=== PATIENT | male | born 1955 | race Asian ===

== ENCOUNTER 2018-05-23 17:23 | Inpatient (IN) | payer OTHER ==
[~2018-05-23] VITALS: Ht 170.2 cm; Wt 52.6 kg
[2018-05-23 18:17] LABS: BASOPHILS ABSOLUTE AUTO 0.05 K/mm3 (0.00-0.23); BASOPHILS PERCENT AUTO 1 % (0-2); EOSINOPHILS ABSOLUTE AUTO 0.17 K/mm3 (0.00-0.68); EOSINOPHILS PERCENT AUTO 2 % (0-6); Hematocrit 44.9 % (37.0-53.0); Hemoglobin 15.2 g/dL (13.5-17.5); IMMATURE GRAN ABSOLUTE AUTO 0.01 K/mm3 (0.00-0.10); IMMATURE GRAN PERCENT AUTO 0 % (0-1); LYMPHOCYTES ABSOLUTE AUTO 1.63 K/mm3 (0.84-5.20); LYMPHOCYTES PERCENT AUTO 22 % (21-46); MONOCYTES ABSOLUTE AUTO 0.45 K/mm3 (0.16-1.47); MONOCYTES PERCENT AUTO 6 % (4-13); Mean Corpuscular HGB 30.4 pg (26.0-34.0); Mean Corpuscular HGB Conc 33.9 g/dL (31.5-36.5); Mean Corpuscular Volume 90 fL (80-100); Mean Platelet Volume 10.4 fL (9.1-12.4); NEUTROPHILS ABSOLUTE AUTO 5.12 K/mm3 (1.96-9.15); NEUTROPHILS PERCENT AUTO 69 % (41-73); Platelet Count 207 K/mm3 (150-400); RDW Coefficient Variation 13.2 % (11.7-14.2); RDW Standard Deviation 43.2 fL (35.1-46.3); White Blood Cell Count 7.43 K/mm3 (4.00-11.30)
[2018-05-23 18:37] LABS: International Normalized Ratio 1.05; Prothrombin Time Results 11.1 Sec (9.7-11.5)
[2018-05-23 18:54] LABS: Alanine Aminotransfer (ALT/SGP 28 U/L (12-78); Albumin, Blood 3.5 g/dL (3.4-5.0); Albumin/Globulin Ratio 1.1 (0.8-1.8); Alk Phos 87 U/L (50-136); Anion Gap 8 mmol/L (6-16); Aspartate Aminotrans (AST/SGOT 16 U/L (12-37); Bilirubin, Total 0.9 mg/dL (0.1-1.0); Blood Urea Nitrogen 13 mg/dL (8-24); Bun/Creatinine Ratio 16.3 (12.0-20.0); CO2, Blood 27 mmol/L (21-32); Calcium, Blood 8.1 mg/dL (8.5-10.1); Chloride, Blood 101 mmol/L (98-108); Globulin, Blood 3.3 g/dL (2.2-4.0); Glomerular Filtration Rate >60 (60-); Glucose, Blood 182 mg/dL (70-99); Potassium, Blood 2.7 mmol/L (3.5-5.5); Sodium, Blood 136 mmol/L (136-145); Total Protein, Blood 6.8 g/dL (6.4-8.2)
[2018-05-23 19:33] LABS: CHOL/HDL RATIO 2.2; Cholesterol 126 mg/dL (50-200); HDL Cholesterol 57 mg/dL (>39); LDL/HDL RATIO 0.9; Low Density Lipoprotein Chol 51 mg/dL (0-110); Triglycerides 92 mg/dL (30-160); Very Low Density Lipoprot Chol 18 mg/dL (6-32)
[2018-05-24 06:00] LABS: Anion Gap 8 mmol/L (6-16); Blood Urea Nitrogen 15 mg/dL (8-24); Bun/Creatinine Ratio 16.5 (12.0-20.0); CO2, Blood 26 mmol/L (21-32); Calcium, Blood 8.8 mg/dL (8.5-10.1); Chloride, Blood 106 mmol/L (98-108); Creatinine, Blood 0.91 mg/dL (0.60-1.20); Glomerular Filtration Rate >60 (60-); Glucose, Blood 157 mg/dL (70-99); Sodium, Blood 140 mmol/L (136-145)
--- NOTE | 2018-05-24 09:39 | NUR ---
ECHOCARDIOGRAM COMPLETE
--- NOTE | 2018-05-24 13:31 | NUR ---
REview of patient in care mangement meeting. difficulty in communication. Pt Pt setswana and speaks manarin. at bedside she speaks limited icelandic. interpeter phone in place for pt care advised pt through that he can ask nurse to use phone for his needs. made sure regular phone inplace so he can contact his family. charge nurse and bedside nurse notified.
--- NOTE | 2018-05-24 13:56 | NUR ---
HE AND HIS ARRIVED TO ROOM 313 AT 1315 FROM THE ER. HE TRANSFERRED INDEPENDENTLY FROM THE W/C TO THE BED. THE PALLIATIVE CARE NURSE RETREIVED A TRANSLATION PHONE AND SET IT UP IN THE ROOM. THE CALLED THEIR DAUGHTER AND ASKED HER TO COME INTO THE HOSPITAL FOR TRANSLATION DURING THE ADMISSION PROCESS. SHE IS HERE NOW AND TRANSLATING FOR THE PT EVALUATION. WILL DO ADMIT HISTORY NEXT. THE PATIENT IS AMBULATORY BUT HAS MARIELENA L-SIDED DEFICITS. HE APPEARS COMFORTABLE. TELE HAS BEEN RESUMED. NSR IN THE 60'S.
[2018-05-24 17:32] LABS: Source, Urine Clean Catch
[2018-05-24 17:35] LABS: Appearance, Urine Clear (Clear); Bilirubin, Urine Neg (Neg); Blood, Urine 1+ (Neg); Color, Urine Yellow (P-Yellow); Glucose Qualitative, Urine 4+ (Neg); Ketones, Urine Neg (Neg); Leukocyte Esterase, Urine Neg (Neg); Nitrite, Urine Neg (Neg); Protein, Urine 1+ (Neg); Specific Gravity, Urine 1.015 (1.003-1.022); Urobilinogen, Urine NORM (Normal)
[2018-05-24 18:23] LABS: Bacteria Not Seen /hpf; Red Blood Cells, Urine 0-2 /hpf (0-2); Squamous Epithelial Cells Not Seen /hpf (Few); White Blood Cells, Urine Not Seen /hpf (0-5)
--- NOTE | 2018-05-24 19:31 | NUR ---
HE HAD HIS MRI DONE AND SHOWERED AFTERWARD. HIS IS AT THE BEDSIDE. SHE PLANS TO SPEND THE NIGHT. HE ATE 100%. NO COMPLAINTS. MILD L-SIDED DEFICIT. NO COMPLAINTS. HE SPEAKS MANDARIN, NOT SLOVAK. HIS SPEAKS A LITTLE SLOVAK. HIS DAUGHTER CHECO IS WHO TRANSLATED FOR THE ADMISSION PROCESS AND PT EVAL. AND MRI SCREENING FORM. PO BP MEDS STARTED.
--- NOTE | 2018-05-25 03:47 | NUR ---
PT RESTED COMFORTABLY ALL SHIFT WITH SPOUSE AT SIDE. PT DENIES PAIN, NAUSEA. PT ALERT AND ORIENTED X3 AND ABLE TO FOLLOW ALL SIMPLE VERBAL COMMANDS WITH CUES FROM SPOUSE (PT ONLY SPEAKS GREEK MANDARAN LANGUAGE). PT CONTINUES TO HAVE SLIGHT LEFT HAND WEAKNESS, BILATERAL FOOT PUSH/PULLS STRONG.
--- NOTE | 2018-05-25 04:24 | NUR ---
I AGREE WITH FLORINA NATH.
[2018-05-25 05:41] LABS: BASOPHILS ABSOLUTE AUTO 0.06 K/mm3 (0.00-0.23); BASOPHILS PERCENT AUTO 1 % (0-2); EOSINOPHILS ABSOLUTE AUTO 0.26 K/mm3 (0.00-0.68); EOSINOPHILS PERCENT AUTO 3 % (0-6); Hematocrit 46.4 % (37.0-53.0); Hemoglobin 15.4 g/dL (13.5-17.5); IMMATURE GRAN ABSOLUTE AUTO 0.04 K/mm3 (0.00-0.10); IMMATURE GRAN PERCENT AUTO 0 % (0-1); LYMPHOCYTES ABSOLUTE AUTO 2.48 K/mm3 (0.84-5.20); LYMPHOCYTES PERCENT AUTO 25 % (21-46); MONOCYTES ABSOLUTE AUTO 0.63 K/mm3 (0.16-1.47); MONOCYTES PERCENT AUTO 6 % (4-13); Mean Corpuscular HGB Conc 33.2 g/dL (31.5-36.5); Mean Corpuscular Volume 90 fL (80-100); Mean Platelet Volume 10.9 fL (9.1-12.4); NEUTROPHILS ABSOLUTE AUTO 6.46 K/mm3 (1.96-9.15); NEUTROPHILS PERCENT AUTO 65 % (41-73); Platelet Count 217 K/mm3 (150-400); RDW Coefficient Variation 13.5 % (11.7-14.2); RDW Standard Deviation 45.3 fL (35.1-46.3); Red Blood Cell Count 5.13 M/mm3 (4.30-5.90); White Blood Cell Count 9.93 K/mm3 (4.00-11.30)
[2018-05-25 06:37] LABS: Alanine Aminotransfer (ALT/SGP 20 U/L (12-78); Albumin, Blood 3.6 g/dL (3.4-5.0); Albumin/Globulin Ratio 1.2 (0.8-1.8); Alk Phos 80 U/L (50-136); Anion Gap 9 mmol/L (6-16); Aspartate Aminotrans (AST/SGOT 15 U/L (12-37); Bilirubin, Total 1.3 mg/dL (0.1-1.0); Blood Urea Nitrogen 15 mg/dL (8-24); Bun/Creatinine Ratio 13.6 (12.0-20.0); CO2, Blood 25 mmol/L (21-32); Calcium, Blood 8.6 mg/dL (8.5-10.1); Chloride, Blood 106 mmol/L (98-108); Globulin, Blood 3.1 g/dL (2.2-4.0); Glomerular Filtration Rate >60 (60-); Glucose, Blood 130 mg/dL (70-99); Sodium, Blood 140 mmol/L (136-145); Total Protein, Blood 6.7 g/dL (6.4-8.2)
--- NOTE | 2018-05-25 19:48 | NUR ---
SHIFT SUMMARY PATIENT A&O X4, SBA TO THE BATHROOM. PATIENT SPEAKS ONLY MANDRIAN. FAMILY AT THE BEDSIDE TO HELP TRANSLATE. DENIES ANY PAIN, SOB, OR NAUSEA. RN MEDICATED THROUGHOUT THE SHIFT FOR HTN. DR. CARMONA AWARE. LAST BP @ 1822 163/88. NO OTHER ACUTE CHANGES THIS SHIFT. DENIES ANY N/T. NEURO CHECKS Q 8 HRS WNL. RESTED THROUGHOUT THE SHIFT. CALL LIGHT WITHIN REACH.
--- NOTE | 2018-05-26 04:50 | NUR ---
SHIFT SUMMARY A/O, ABLE TO MAKE NEEDS KNOWN. COOPERATIVE WITH CARE. FAMILY IN ROOM FOR TRANSLATION PURPOSES. NO C/O PAIN/DISCOMFORT. NOTABLE HYPERTENSION; Q4 VITAL SIGNS PERFORMED; GIVEN PRN HYDRALAZINE; WILL RE-CHECK BP. DID NOT APPEAR TO REST MUCH OVERNIGHT; WATCHING MOVIES ON TABLET. FAMILY HELPING WITH MUCH OF CARE AND ASSISTING TO RESTROOM. NO ACUTE CHANGES OVERNIGHT. BED IN LOWEST POSITON. CALL LIGHT AND BELONGINGS WITHIN REACH. WCTM. REPORT TO ONCOMING RN.
[2018-05-26 05:54] LABS: Anion Gap 8 mmol/L (6-16); Blood Urea Nitrogen 22 mg/dL (8-24); Bun/Creatinine Ratio 21.4 (12.0-20.0); CO2, Blood 24 mmol/L (21-32); Calcium, Blood 8.8 mg/dL (8.5-10.1); Chloride, Blood 108 mmol/L (98-108); Creatinine, Blood 1.03 mg/dL (0.60-1.20); Glomerular Filtration Rate >60 (60-); Glucose, Blood 158 mg/dL (70-99); Potassium, Blood 3.6 mmol/L (3.5-5.5); Sodium, Blood 140 mmol/L (136-145)
[2018-05-26] MEDS ORDERED: AMLO5 PO (13:29)
[2018-05-26] MEDS ORDERED: ASPI81CH PO (13:29)
[2018-05-26] MEDS ORDERED: ATOR10 PO (13:30)
[2018-05-26] MEDS ORDERED: GLIP2.5ER PO (13:32)
[2018-05-26] MEDS ORDERED: LISI20 PO (13:32)
--- NOTE | 2018-05-26 16:27 | NUR ---
PATIENT A&O X4, INDEPENDENT TO THE BATHROOM THIS SHIFT. PATIENT DOES NOT SPEAK ANY BULGARIAN. SON IS AT THE BEDSIDE WHO SPEAKS BULGARIAN AND IS TRANSLATING FOR THE PATIENT. ALL DISCHARGE INFORMATION REVIWED WITH THE PATIENT AND SON. RN WENT OVER MEDICATIONS WELL FOLLOW UP INSTRUCTIONS. PATIENT EDUCATION ON NEW MEDICATIONS, DIABETES, AND CVA WAS PROVIDED AND REVIEWED WITH THE PATIENT AND SON TRANSLATING. MEDICATIONS FAXED TO [facility] ON [address]. HARD PRESCRIPTIONS X3 SENT WITH PATIENT FOR GLUCOMETER AND LANCETS ALONG WITH A SCRIPT FOR WORK. RN MEDICATED PER E MAR THIS SHIFT. LAST BP 174/94, DR. CARMONA AWARE. FLAT BED OPERATOR ESCORTED PATIENT OUT BY WHEELCHAIR, ALL BELONGINGS IN HAND. FAMILY AT HIS SIDE.
== END 2018-05-26 15:33 | disposition home health service (06) | DRG 65 ==
LOC: ER 17:23 → EDSEX 17:23 → ER 19:06 → ERHOLD 19:06 → MEDS 19:06 → ERHOLD 05-24 13:01 → MEDS 05-24 13:01 → ENPENDDIS 05-26 10:27 → MEDS 05-26 15:33
PROVIDERS: Emergency Medicine; Hospitalist; Internal Medicine; Nurse Practitioner Acute Care; ADMIT Internal Medicine
DX: I63.9 Cerebral infarction, unspecified (principal); G81.91 Hemiplegia, unspecified affecting right dominant side; I10 Essential (primary) hypertension; E11.9 Type 2 diabetes mellitus without complications; J44.9 Chronic obstructive pulmonary disease, unspecified; I51.7 Cardiomegaly; E87.6 Hypokalemia; F17.210 Nicotine dependence, cigarettes, uncomplicated
CPT/HCPCS: 36415; 70450; 70496; 70551; 71045; 80048; 80053; 80061; 81001; 83036; 83735; 84443; 85025; 85610; 85651; 85730; 92610; 93005; 93010; 93306; 93880; 96372-59; 96374-59; 96375-59; 96376-59; 97112; 97116; 97162; 97166; 97530; 99285-25; G0378; J0360; J1650; Q9967

== ENCOUNTER 2018-09-04 08:51 | Emergency (ER) | payer OTHER ==
[~2018-09-04] VITALS: Ht 154.9 cm; Wt 63.5 kg
[~2018-09-04 08:51] MED LIST: AMLO5 PO; ASPI81CH PO; ATOR10 PO; GLIP2.5ER PO; LISI20 PO
[2018-09-04 10:39] LABS: BASOPHILS ABSOLUTE AUTO 0.03 K/mm3 (0.00-0.23); BASOPHILS PERCENT AUTO 0 % (0-2); EOSINOPHILS ABSOLUTE AUTO 0.12 K/mm3 (0.00-0.68); EOSINOPHILS PERCENT AUTO 2 % (0-6); Hematocrit 47.1 % (37.0-53.0); Hemoglobin 15.5 g/dL (13.5-17.5); IMMATURE GRAN ABSOLUTE AUTO 0.02 K/mm3 (0.00-0.10); IMMATURE GRAN PERCENT AUTO 0 % (0-1); LYMPHOCYTES ABSOLUTE AUTO 1.64 K/mm3 (0.84-5.20); LYMPHOCYTES PERCENT AUTO 24 % (21-46); MONOCYTES ABSOLUTE AUTO 0.33 K/mm3 (0.16-1.47); MONOCYTES PERCENT AUTO 5 % (4-13); Mean Corpuscular HGB 31.1 pg (26.0-34.0); Mean Corpuscular HGB Conc 32.9 g/dL (31.5-36.5); Mean Corpuscular Volume 95 fL (80-100); Mean Platelet Volume 10.4 fL (9.1-12.4); NEUTROPHILS ABSOLUTE AUTO 4.74 K/mm3 (1.96-9.15); NEUTROPHILS PERCENT AUTO 69 % (41-73); Platelet Count 197 K/mm3 (150-400); RDW Coefficient Variation 13.2 % (11.7-14.2); RDW Standard Deviation 46.8 fL (35.1-46.3); Red Blood Cell Count 4.98 M/mm3 (4.30-5.90); White Blood Cell Count 6.88 K/mm3 (4.00-11.30)
[2018-09-04 11:13] LABS: Alanine Aminotransfer (ALT/SGP 71 U/L (12-78); Albumin, Blood 4.2 g/dL (3.4-5.0); Albumin/Globulin Ratio 1.3 (0.8-1.8); Alk Phos 72 U/L (50-136); Anion Gap 5 mmol/L (6-16); Aspartate Aminotrans (AST/SGOT 28 U/L (12-37); Bilirubin, Total 0.6 mg/dL (0.1-1.0); Blood Urea Nitrogen 16 mg/dL (8-24); Bun/Creatinine Ratio 18.3 (12.0-20.0); CO2, Blood 29 mmol/L (21-32); Chloride, Blood 107 mmol/L (98-108); Creatinine, Blood 0.88 mg/dL (0.60-1.20); Globulin, Blood 3.3 g/dL (2.2-4.0); Glomerular Filtration Rate >60 (60-); Glucose, Blood 137 mg/dL (70-99); Potassium, Blood 3.8 mmol/L (3.5-5.5); Sodium, Blood 141 mmol/L (136-145); Total Protein, Blood 7.5 g/dL (6.4-8.2)
== END 2018-09-04 12:23 | disposition home or self-care (01) ==
LOC: ER 08:51
PROVIDERS: Emergency Medicine
DX: I10 Essential (primary) hypertension (principal); Z79.82 Long term (current) use of aspirin; Z79.899 Other long term (current) drug therapy; Z79.84 Long term (current) use of oral hypoglycemic drugs; E11.9 Type 2 diabetes mellitus without complications; Z86.73 Personal history of transient ischemic attack (TIA), and cerebral infarction without residual deficits; F17.200 Nicotine dependence, unspecified, uncomplicated
CPT/HCPCS: 80053; 84484; 85025; 93005; 93010; 96374; 99283-25; J0360

== ENCOUNTER 2018-12-20 06:01 | Day surgery (SDC) | payer OTHER ==
[~2018-12-20] VITALS: Ht 165.1 cm; Wt 56.0 kg
--- NOTE | 2018-12-20 09:23 | NUR ---
PT HR WHILE SLEEPING DIPPING DOWN TO THE MID TO UPPER 30'S. DR. CHO AWARE AND CAME TO SEE PT. VERIFIED RHYTHM STRIP SINUS EDWARDO WITH NO HEART BLOCK. PT HR INCREASES TO 50'S WHILE ALERT, AWAKE, AND EATING.
--- NOTE | 2018-12-20 11:27 | NUR ---
PT DISCHARGE INSTRUCTIONS GONE OVER WITH SON, SON VERBALIZES UNDERSTANDING. PT PLACED IN SLING TO REMIND HIM NOT TO USE THAT RIGHT HAND. PT DECLINES W/C AND IS AMBULATORY WITH SON TO PRIVATE VEHICLE. DOT CLOTH IN PLACE ON RIGHT RADIAL SITE.
== END 2018-12-20 12:15 | disposition home or self-care (01) ==
LOC: MHTC 06:01
DX: I42.9 Cardiomyopathy, unspecified (principal); I63.9 Cerebral infarction, unspecified; R00.1 Bradycardia, unspecified; R94.31 Abnormal electrocardiogram [ECG] [EKG]; I10 Essential (primary) hypertension; E11.9 Type 2 diabetes mellitus without complications; Z87.891 Personal history of nicotine dependence; Z79.899 Other long term (current) drug therapy; Z79.84 Long term (current) use of oral hypoglycemic drugs; Z79.82 Long term (current) use of aspirin
CPT/HCPCS: 93454; 99152; 99153; C1769; C1894; J1644; J2250; J3010; J7030; Q9967

== ENCOUNTER 2022-05-02 08:58 | Day surgery (SDC) | payer MEDICARE ==
[~2022-05-02] VITALS: Ht 162.6 cm; Wt 58.0 kg
--- NOTE | 2022-05-02 09:55 | NUR ---
Patient up to Ambulate independently. Gait steady. PT AXOX4, DOES NOT SPEAK FAROESE, HAS AT BEDSIDE. NURSE USING STRAW HAT PLUNGER OPERATOR THROUGH HOSPITAL PHONE LINE TO TRANSLATE AND GO OVER HEALTH HISTORY.
[2022-05-02] MEDS ORDERED: GLIP10ER PO (10:33)
[2022-05-02] MEDS ORDERED: LISI20 PO (10:34)
[2022-05-02] MEDS ORDERED: HYDRA25 PO (10:34)
[2022-05-02] MEDS ORDERED: METF500C PO (10:35)
[2022-05-02] MEDS ORDERED: METO25ER PO (10:35)
[2022-05-02] MEDS ORDERED: FURO20 PO (10:36)
[2022-05-02] MEDS ORDERED: ATOR20 PO (10:36)
--- NOTE | 2022-05-02 10:40 | NUR ---
PT SPEAKS MANDRIN CHINESES, METAL DRILL OPERATOR PHONE USED FOR FULL ADMISSION AND PROCEDURE PROCESS. AT BEDSDE. LUNGS CLEAR
--- NOTE | 2022-05-02 10:43 | NUR ---
05/02/22 1043 Jose Luis Carrion HISTORY, CHART, MEDICATIONS AND ALLERGIES REVIEWED BEFORE START OF PROCEDURE. PATIENT CONFIRMS NPO STATUS AND AGREES WITH SCHEDULED PROCEDURE. 3-LEAD EKG REVIEWED WITH PHYSICIAN PRIOR TO START OF PROCEDURE. MONITOR INTACT WITH CONTINUOUS PULSE OXIMETRY,CAPNOGRAPHY, 3-LEAD EKG, INTERMITTENT BP. SUPPLEMENTAL O2 TO BE TITRATED THROUGHOUT PROCEDURE TO MAINTAIN O2 SATURATION ABOVE 90%. PATIENT DETERMINED TO BE ASA APPROPRIATE FOR PROPOFOL SEDATION PRIOR TO START OF PROCEDURE BY DR. HADDAD.
== END 2022-05-02 22:51 | disposition home or self-care (01) ==
LOC: ORSCMMR 08:58 → ORD 10:00 → ORSCMMR 10:00
PROVIDERS: Internal Medicine Gastroenterology
PROC: 0DJD8ZZ Inspection of Lower Intestinal Tract, Via Natural or Artificial Opening Endoscopic (ICD-10-PCS; principal; 2022-05-02 10:00)
DX: Z12.11 Encounter for screening for malignant neoplasm of colon (principal); E11.9 Type 2 diabetes mellitus without complications; I10 Essential (primary) hypertension; E78.00 Pure hypercholesterolemia, unspecified; Z87.891 Personal history of nicotine dependence; Z79.84 Long term (current) use of oral hypoglycemic drugs; Z79.899 Other long term (current) drug therapy
CPT/HCPCS: 82947; J2704; J7120

== ENCOUNTER → 2023-05-02 | Outpatient (CLI) | payer OTHER ==
[~2023-05-02] MED LIST changes: +ATOR20 PO; +FURO20 PO; +GLIP10ER PO; +HYDRA25 PO; +METF500C PO; +METO25ER PO
[2023-05-02 19:40] LABS: CHOL/HDL RATIO 1.6; Cholesterol 110 mg/dL (50-200); HDL Cholesterol 69 mg/dL (>39); LDL/HDL RATIO 0.3; Low Density Lipoprotein Chol 23 mg/dL (0-110); Triglycerides 88 mg/dL (30-160); Very Low Density Lipoprot Chol 17 mg/dL (6-32)
[2023-05-04 08:11] LABS: A/G RATIO 2.5 (1.2-2.2); BILIRUBIN, TOTAL 0.5 mg/dL (0.0-1.2); CALCIUM, SERUM 9.9 mg/dL (8.6-10.2); CREATININE, SERUM 1.04 mg/dL (0.76-1.27); POTASSIUM, SERUM 4.2 mmol/L (3.5-5.2)
== END | disposition home or self-care (01) ==
LOC: LAB 18:01 → LAB SHORT 18:01
PROVIDERS: Family Medicine
DX: I10 Essential (primary) hypertension (principal); E78.5 Hyperlipidemia, unspecified
CPT/HCPCS: 80053; 80061